=== PATIENT | female | born 1975 | race Caucasian/White ===

== ENCOUNTER → 2021-02-08 15:17 | Outpatient (CLI) | payer OTHER, SELFPAY ==
--- NOTE | ~2021-02-08 | MM_ITS ---
EXAMINATION: MM screening jennifer BI w isatu HISTORY: Screening TECHNIQUE: Craniocaudal and mediolateral oblique 3-D tomosynthesis images were obtained and synthetic 2-D images were generated. CAD analysis was submitted and interpreted. COMPARISON: No prior mammogram is available for comparison at this institution. BREAST PARENCHYMAL COMPOSITION: There are scattered areas of fibroglandular density. FINDINGS: There are small masses in the subareolar location of both breasts. There are no suspicious calcifications or architectural distortion. IMPRESSION: 1. Bilateral subareolar breast mass. 2. Comparison to previous outside mammograms recommended. BI-RADS Category 0: Incomplete: Needs additional imaging evaluation. Reviewed, dictated and finalized at location A. OR GREETING CARD
== END ==
PROVIDERS: Visit Provider Obstetrics & Gynecology
DX: Z12.31 Encounter for screening mammogram for malignant neoplasm of breast (principal); R92.8 Other abnormal and inconclusive findings on diagnostic imaging of breast
CPT/HCPCS: 77063; 77067

== ENCOUNTER → 2022-08-01 16:48 | Outpatient (CLI) | payer OTHER, SELFPAY ==
--- NOTE | ~2022-08-01 | MM_ITS ---
EXAMINATION: MM screening jennifer BI w isatu HISTORY: Screening mammogram TECHNIQUE: Craniocaudal and mediolateral oblique 3-D tomosynthesis images were obtained and synthetic 2-D images were generated. CAD analysis was submitted and interpreted. COMPARISON: 02/08/2021 bilateral screening mammogram BREAST PARENCHYMAL COMPOSITION: There are scattered areas of fibroglandular density. FINDINGS: There is no evidence of suspicious mass, calcification, or architectural distortion to sugg est malignancy in either breast. There has been no suspicious interval change. IMPRESSION: 1. No mammographic evidence of malignancy. 2. Recommend routine screening mammography in one year. BI-RADS Category 1: Negative Reviewed, dictated and finalized at location A.
== END ==
PROVIDERS: PCP Obstetrics & Gynecology; Visit Provider Obstetrics & Gynecology
DX: Z12.31 Encounter for screening mammogram for malignant neoplasm of breast (principal)
CPT/HCPCS: 77063; 77067

== ENCOUNTER 2023-09-18 14:18 | Outpatient (CLI) | payer OTHER, SELFPAY ==
--- NOTE | ~2023-09-18 | MM_ITS ---
EXAMINATION: MM screening jennifer BI w isatu HISTORY: Screening TECHNIQUE: Craniocaudal and mediolateral oblique 3-D tomosynthesis images were obtained and synthetic 2-D images were generated. CAD analysis was submitted and interpreted. COMPARISON: Comparison to multiple prior studies sequentially, with oldest reviewed study dated 12/03. BREAST PARENCHYMAL COMPOSITION: Not dense: There are scattered areas of fibroglandular density. FINDINGS: There is no evidence of suspicious mass, calcification, or architectural distortion to sugg est malignancy in either breast. There has been no suspicious interval change. IMPRESSION: 1. No mammographic evidence of malignancy. 2. Recommend routine screening mammography in one year. BI-RADS Category 1: Negative Reviewed, dictated and finalized at location B.
== END 2023-09-18 14:19 ==
LOC: MICIMG 14:19
PROVIDERS: PCP Obstetrics & Gynecology; Visit Provider Obstetrics & Gynecology
DX: Z12.31 Encounter for screening mammogram for malignant neoplasm of breast (principal)
CPT/HCPCS: 77063; 77067

== ENCOUNTER 2024-06-15 00:40 | Day surgery (SDC) | payer OTHER, SELFPAY ==
[2024-06-03 10:30] VITALS: BMI 38.7
--- OUTSIDE RECORDS SUMMARY | 2024-06-15 00:42 | XMS_ITS | Clinical Summary ---
Author Organization [facility] Address [address] [place] [address] Care Team Providers Care Grain Inspector Name Role Phone Eulalia Gamez NP Primary Care Provider [phone] Family History Medical History Relation Comments Breast Cancer Neg Hx Social History Tobacco Use Types Packs/Day Years Used Date Smoking Tobacco: Never Assessed Comments Unknown Sex and Gender Information Value Date Recorded Sex Assigned at Not on file Legal Sex Female 7:58 AM CDT Gender Identity Not on file Sexual Orientation Not on file Plan of Treatment Health Maintenance Due Date Last Done Comments Cervical Cancer Screening Pa p Smear (Age 30 to 64) Every 3 Years 1977 Colorectal Cancer Screening Colonoscopy (10 Years) 1977 Annual Physical 1980 Hepatitis C 11/17/1995 DTaP, Tdap and Td Vaccines ( 1 - Tdap) 1996 Hepatitis B Vaccines (1 of 3 - 19+ 3-dose series) 1996 Cervical Cancer Screening Pa p with HPV Testing (Age 30 to 64) Every 5 Years 11/17/2007 Cervical Cancer Screening wi th HPV 11/17/2007 Mammogram Screening 01/12/2022 01/13/2020, 12/30/2019 COVID-19 Vaccine (2023-2 5 season) 2023 Meningococcal B Vaccine Aged Out No l onger eligible based on patient's age to complete this topic Meningococcal Vaccine Aged Out No lauren galen eligible based on patient's age to complete this topic Pneumococcal Vaccine: Pediatrics (0 to 5 Years) and At-Risk Patients (6 to 49 Years) Aged Out No longer eligible b ased on patient's age to complete this topic RSV Immunizations Under 20 Months Aged Out No longer eligible b ased on patient's age to complete this topic Procedures Procedure Name Priority Date/Time Associated Diagnosis Comments MG DIAG ADD VIEW W LIN JACOB Routine 01/13/2020 2:22 PM TWISTING PRESS OPERATOR Abnormal mammogram from Last 3 Months or Most Recently Relevant to Health Maintenance Results * MG DIAG ADD VIEW W LIN JACOB (01/13/2020 2:22 PM TWISTING PRESS OPERATOR) Anatomical Region Laterality Modality Breast Bilateral Mammography, Rad iographic Imaging 01/13/2020 2:26 PM TWISTING PRESS OPERATOR Addenda Addendum by Camilo Yuen MD on 01/15/2020 1:52 PM TWISTING PRESS OPERATOR IMAGING STUDIES: MG DIAG ADD VIEW W LIN JACOB DATE: 01/13/2020 1:30 PM INDICATION: Additional imaging as required per screening examination 12/30/2019. COMPARISON: Mammogram 12/22/2019, bilateral breast ultrasound 01/13/2020. FINDINGS: Bilateral ML and focal compression CC and MLO views, digital with CAD. 2-D with 3-D tomosynthesis. Breast compostition: Category B - There are areas of scattered fibroglandular density. Persistent nodularity present right breast near 9:00 approximately 3 cm from the nipple and left breast upper outer quadrant approximately 6 cm from the nipple. These areas were evaluated by ultrasound. Refer to same day ultrasound report for additional information. No suspicious microcalcification, skin thickening or nipple retraction. Ultrasound imaging of both breasts was performed. Within the left breast, 2:00, 6 cm from the nipple, there is a 2.6 x 2.1 x 3.0 mm anechoic simple cyst. No additional follow-up required. Within the right breast, 10:00, 3 cm from the nipple, there is an anechoic, cystic, nonvascular lobulated 10 x 5 x 10 mm likely complex cyst. Recommend 6 month follow-up ultrasound and if necessary MAMMOGRAM. BI-RADS Category 3, probably benign findings. I discussed these findings with the patient at time of the ultrasound examination Interpreted By: Camilo Yuen, 01/15/2020 1:48 PM Narrative 01/13/2020 2:28 PM TWISTING PRESS OPERATOR IMAGING STUDIES: MG DIAG ADD VIEW W LIN JACOB DATE: 01/13/2020 1:30 PM INDICATION: Additional imaging as required per screening examination 12/30/2019. COMPARISON: Mammogram 12/22/2019, bilateral breast ultrasound 01/13/2020. FINDINGS: Bilateral ML and focal compression CC and MLO views, digital with CAD. 2-D with 3-D tomosynthesis. Breast compostition: Category B - There are areas of scattered fibroglandular density. Persistent nodularity present right breast near 9:00 approximately 3 cm from the nipple and left breast upper outer quadrant approximately 6 cm from the nipple. These areas were evaluated by ultrasound. Refer to same day ultrasound report for additional information. No suspicious microcalcification, skin thickening or nipple retraction. Ultrasound imaging of both breasts was performed. Within the left breast, 2:00, 6 cm from the nipple, there is a 2.6 x 2.1 x 3.0 mm anechoic simple cyst. No additional follow-up required. Within the right breast, 10:00, 3 cm from the nipple, there is an anechoic, cystic, nonvascular lobulated 10 x 5 x 10 mm likely complex cyst. Recommend 6 month follow-up ultrasound and if necessary ultrasound. BI-RADS Category 3, probably benign findings. I discussed these findings with the patient at time of the ultrasound examination Interpreted By: Camilo Yuen, 01/13/2020 2:26 PM Mayco Almaguer MD MAMMO Edited Res ult - Final from Last 3 Months or Most Recently Relevant [place] [address] Care Teams Grain Inspector Relationship Specialty Start Date End Date Eulalia Gamez NP [address] [address] PCP - General NURSE PRACTITIONER 12/30/19
--- OUTSIDE RECORDS SUMMARY | 2024-06-15 00:42 | XMS_ITS ---
Author Organization [facility] Address [address] [place] [id number] Care Team Providers Care Wide Area Network Administrator Name Role Phone Yolanda Wright Primary Care Provider [phone] Migration, Provider Unavailable Unavailable Allergies Allergen (clinical drug ingredient) Drug/Non Drug Allergy documented on EMR Reaction Allergy Type Onset Date Status Substance with penicillin structure and antibacterial mechanism of action (substance) Penicillins *Unknown Drug Allergy 09/12/2020 Active REASON FOR VISIT EMR-Keith Social History Social History Additional Details Category Social Info Options Details Migrated Social History Migrated Social History Tobacco history:Never smoker , Employment:Currently employed ,notes : process project engineer , Marital status: , Number of children:2 Encounters Encounter Location Date Provider Diagnosis [address] [address] 02/02/2024 Provider Migration Plan Of Treatment No Information Progress Notes * Richy MATTAalDOB: 8 (48 yo F)Acc No.[id number]:02/02/2024 Patient: Sona [place] :1975 A ge:48 Y S ex:Female Address:[address] [place] [address], [id number] Subjective: * Chief Complaints: * E MR-Keith * Social History: M igrated Social History: M igrated Social History: Tobacco history:Never smoker,Employment:Currently employed ,notes : process project engineer,Marital status:,Number of children:2. * Allergies: P enicillins: *Unknown - Allergy - Onset Date 09/12/2020 * * Date:
--- OUTSIDE RECORDS SUMMARY | 2024-06-15 00:43 | XMS_ITS ---
Author Organization [facility] [place] Address [address] [place] [id number] Care Team Providers Care Inventory Control Associate Name Role Phone Yolanda Wright Primary Care Provider [phone] Migration, Provider Unavailable Unavailable REASON FOR VISIT EMR-Keith Encounters Encounter Location Date Provider Diagnosis [facility] [address] [place] [address] 02/01/2024 Provider Migration Plan Of Treatment Medication Medication Name Sig Start Date Stop Date Notes Doxycycline Monohydrate 100 MG 1 Oral tw o times a day; Duration: 06/12/2021 06/21/2021 Naproxen 500 MG 1 Oral two times a d ay; Duration: 04/19/2023 06/17/2023 Progress Notes * URBANLIUEdilbertoOB: 8 (48 yo F)Acc No.[id number]:02/01/2024 Patient: Cristy JACOBSSona HAT[place] :1975 A ge:48 Y S ex:Female Address:[address] [place] [address], [address] * Refills Stop Doxycycline Monohydrate Capsule, 100 MG, Oral, 20, 1, two times a day, 10 Stop Naproxen Tablet, 500 MG, Oral, 60, 1, two times a day, 30 Subjective: * Chief Complaints: * E MR-Keith * * Date:
--- OUTSIDE RECORDS SUMMARY | 2024-06-15 00:43 | XMS_ITS | Patient Health Record ---
Author Organization [facility] Address [address] [facility] [place] [address] Care Team Providers Care Graduate Advisor Name Role Phone Yolanda Wright Primary Care Provider [phone] Rudolph Whitehead Unavailable [phone] Migration, Provider Unavailable Unavailable Reason For Referral Reason due for colon cancer screening, evaluation of ongoing abdominal pain and diarrhea Diagnosis 1 Left lower quadrant abdominal pain (R10.32) Diagnosis 2 Encounter for screen ing for malignant neoplasm of colon (Z12.11) Referral Organization [facility] Referring Provider First Name Rudolph Referring Provider Last Name Charley Referring Provider Speciality Physician Saddle Stitching Machine Operator Referred Provider Geovany Rose Referred Provider Specialty Gastroentero logy General Notes Lakshmi Myles 1 04/29/2023 02:57:16 PM WOOD ROOM HAND >Faxed referral to Dr. Rose [phone] Kristy 04/29/2024 04:30:22 PM WOOD ROOM HAND >has pt been scheduled or seen?, Lakshmi Myles 05/06/2024 02:31:59 PM WOOD ROOM HAND >LVM with office Referral Priority Routine Medications Medication SIG (Take, Route, Fr equency, Duration) Notes Start Date End Date Status Ondansetron 4 MG 1 tablet on the tongue and allow to dissolve Orally; Duration: 30 days every 4-6 hourse as needed 02/14/2024 Activ e Social History Social History Additional Details Category Social Info Options Details Migrated Social History Migrated Social History Employment:Currently employed ,notes : project buyer , Marital status: , Tobacco history:Never smoker , Number of children:2 Problems Problem Type SNOMED Code ICD Code Onset Dates Problem Status W/U Status Risk Notes Problem Obesity (034869010) Obesity, unspecified (E66.9) 8 Problem resolved confirmed Problem General examination of patient (018693748) Routine general medical examination at health care facility (V70.0) 8 Problem resolved confirmed Problem Obesity (976381506) Obesity, unspecified (278.00) 8 Problem resolved confirmed Problem Food allergy (792934473) Allergy to other foods (Z91.018) 4 Active confirmed Problem Adult health examination (691969278) Encounter for general adult medical examination without abnormal findings (Z00.00) 1 Active confirmed Problem Allergic rhinitis (02733184) Allergic rhinitis, unspecified (J30.9) 2 Active confirmed Problem Acute sinusitis (66774508) Acute sinusitis, unspecified (J01.90) 2 Active confirmed Problem Vitamin D deficiency (57944944) Vitamin D deficiency, unspecified (E55.9) 1 Active confirmed Problem Medial epicondylitis of right elbow (785725497970978) Medial epicondylitis, right elbow (M77.01) 4 Active confirmed Vital Signs Heart Rate 125 /min 02/14/2024 Temperature 98.6 degrees Fahrenheit 02/14/2024 Blood pressure diastolic 72 mm Hg 02/14/2024 Oximetry 98 % 02/14/2024 Height-cm 163.83 cm 02/14/2024 Weight-kg 107 kg 02/14/2024 Height 64.50 in 02/14/2024 Blood pressure systolic 128 mm Hg 02/14/2024 Weight 235.9 lbs 02/14/2024 BMI 39.86 kg/m2 02/14/2024 Encounters Encounter Location Date Provider Diagnosis [facility] [address] [place] [address] 02/14/2024 Rudolph Charley Left lower quadrant abdominal pain R10.32 ; Bloating R14.0 ; Frequent diarrhea R19.7 and Encounter for screening for malignant neoplasm of colon Z12.11 [facility] [address] [place] [address] 02/01/[address] [facility] [address] [place] [address] 02/02/2024 Provider Migration Assessments Encounter Date Diagnosis (ICD Code) Assessment Notes Treatment Notes Treatment Clinical Notes Section Notes 02/14/2024 Left lower quadrant abdominal pain (ICD-10 - R10.32) - Symptoms may be related to dietary triggers or potential gastrointestinal conditions such as celiac disease, lactose intolerance, or other food intolerances. Infectious causes or inflammatory conditions are also being considered.- Differential diagnosis includes celiac disease, lactose intolerance, irritable bowel syndrome (IBS), inflammatory bowel disease (IBD), cholecystitis, pancreatitis, and potential infectious gastroenteritis.- Order labs: CBC, CMP, lipids, ESR, TSH/T4, lipase- Recommend dietary elimination trial, starting with dairy products for at least one week, followed by gluten if no improvement.- Prescribe zofran for nausea, to be taken every 4-6 hours as needed for nausea, discussed risk and benefit of med.- Recommend daily use of famotidine or prilosec to reduce bloating and acid-related symptoms, possible gastritis.- Encourage a bland diet (e.g., bananas, rice, applesauce, toast) to rest the bowel and maintain hydration.- Schedule a referral for a screening colonoscopy.- Consider imaging (CT of the abdomen) if symptoms persist or worsen after initial steps.- Stool testing for white blood cells, red blood cells, blood presence, and bacterial cultures may be considered as indicated. 02/14/2024 Bloating (ICD-10 - R14.0) 02/14/2024 Frequent diarrhea (ICD-10 - R19.7) 02/14/2024 Encounter for screening for malignant neoplasm of colon (ICD-10 - Z12.11) Referral to Dr. Rose in [facility] for colon cancer screening and possible diagnostic scope. Plan Of Treatment No Information Insurance Providers Payer Name Payer Address Payer Phone Subscriber Number Group Number Insured Name Patient Relationship to Insured Coverage Start Date Coverage End Date [id number] MARLA QUE[place] [id number] Sona Jenkins Self - patient is the insured 2
[2024-06-15 09:40] VITALS: BP 141/99; PULSE 109; RESP 20; TEMP 35.8; O2SAT 100; BMI 38.8
--- NOTE | 2024-06-15 09:48 | P.PNAN_ITS ---
Anes - Initial Pre Proc Eval Procedure: Operation Date: 06/15/24 10:30 Proposed Procedures p Colonoscopy - Nathan Roberts MD Date/Time: 06/15/24 09:48 Surgeon: Nathan Roberts MD Pre Op Diagnosis: Left lower quad pain, diarrhea Patient Data Age: 48 Gender: F Height: 1.63 m Weight: 102.7 kg Last Vital Signs Temp 96.5 F L 06/15/24 09:40 Pulse 109 H 06/15/24 09:40 Resp 20 06/15/24 09:40 BP 141/99 H 06/15/24 09:40 Pulse Ox 100 06/15/24 09:40 O2 Del Method Room Air 06/15/24 09:40 Allergies Allergy/AdvReac Type Severity Reaction Status Date / Time Penicillins Allergy Severe Rash Verified 06/15/24 09:38 tomato Allergy Severe Swelling Verified 06/15/24 09:38 Home Medications ?Medication ?Instructions ?Recorded ?Confirmed ?Type cetirizine 10 mg tablet (24Hour 10 mg PO DAILY PRN allergies 06/03/24 06/15/24 History Allergy) omeprazole 40 mg capsule,delayed 40 mg PO DAILY 06/03/24 06/15/24 History release Patient hx anesthesia problems: none Family hx anesthesia problems: none Results Review: All pre-operative results and documents have been reviewed as part of the pre- operative evaluation. PMFSH Social History Social History Years smoked: 5 Smoking status: Former smoker Alcohol intake: current Drinks per week: 4 Substance use: never Substance use type: does not use Living arrangements: with family Spiritual care concerns: No Anes - Eval Final PreProcedure Day of Procedure 06/15/24 09:48 Patient weight: obese Heart: regular rate and rhythm Lungs: clear to auscultation Airway: Mallampati scale class II Neurological: alert and oriented Last oral intake: >/= 8 hours ASA classification: III Emergent: no Anesthetic plan: proceed Anesthesia type and monitoring: general GIVS and standard monitoring Results Review: All pre-operative results and documents have been reviewed as part of the pre- operative evaluation. Informed Consent: The patient's anesthetic plan and its attendant risks and benefits were discussed with the patient/family/POA. Questions were solicited and answers provided to the satisfaction of the patient/family/POA.
[2024-06-15] MEDS: LACTATED RINGERS 1,000 ML 150 ML IV CONT (09:53)
--- NOTE | 2024-06-15 10:19 | PM.HPGS ---
History of Present Illness History of Present Illness Consent: Risks, benefits, and alternatives have been discussed and questions answered. Patient agrees to proceed with procedure. Chief complaint: Left lower quad pain, diarrhea Narrative: Sona Jenkins is a 48 year old female here for first colonoscopy, for last few months noted intermittent pain in llq after eating seeds, vegetables and then will have loose stool Review of Systems Review of Systems: All systems reviewed & are unremarkable except as noted in HPI and below PMFSH Past Medical History Medical History (Updated 06/15/24 @ 10:19 by Nathan Roberts MD) Lower abdominal pain Social History Social History Years smoked: 5 Smoking status: Former smoker Alcohol intake: current Drinks per week: 4 Substance use: never Substance use type: does not use Living arrangements: with family Spiritual care concerns: No Meds Home Medications and Allergies Home Medications ?Medication ?Instructions ?Recorded ?Confirmed ?Type cetirizine 10 mg tablet (24Hour 10 mg PO DAILY PRN allergies 06/03/24 06/15/24 History Allergy) omeprazole 40 mg capsule,delayed 40 mg PO DAILY 06/03/24 06/15/24 History release Allergies Allergy/AdvReac Type Severity Reaction Status Date / Time Penicillins Allergy Severe Rash Verified 06/15/24 09:38 tomato Allergy Severe Swelling Verified 06/15/24 09:38 Vital Signs Vital Signs - 24 hr 06/15/24 09:40 Temperature 96.5 F L Pulse Rate 109 H Respiratory Rate 20 Blood Pressure 141/99 H Pulse Oximetry 100 Oxygen Delivery Room Air Exam Const: General: comfortable and no acute distress HENMT: Face/Nose/Sinus: Normal nares present Eyes: General: appearance normal, both eyes and all related structures Neck: Neck: no JVD Resp: Auscultation: clear to auscultation bilaterally Cardio: Rate: regular rate Rhythm: regular rhythm GI: Inspection: non-distended GI Palp: Yes Soft to palpation Skin: General skin exam: normal color Neuro: Speech: normal speech Extrem: General: normal to inspection Psych: Mental Status: mental status grossly normal Assessment and Plan Assessment and plan (1) Lower abdominal pain: Code(s): R10.30 - Lower abdominal pain, unspecified Status: Acute Assessment and Plan: colonoscopy consider random bx
[2024-06-15 10:31] VITALS: BP 125/79; PULSE 97; RESP 25; O2SAT 98
[2024-06-15 10:31] LABS: BEDSIDEPREGUCG Negative (Negative)
[2024-06-15 10:41] VITALS: BP 150/95; PULSE 87; RESP 32; O2SAT 99
[2024-06-15 10:51] VITALS: BP 140/103; PULSE 89; RESP 23; O2SAT 100
== END 2024-06-15 11:05 | disposition home or self-care (01) ==
PROVIDERS: Referring Provider Student in an Organized Health Care Education/Training Program; Visit Provider Internal Medicine Gastroenterology
PROC: 0DJD8ZZ Inspection of Lower Intestinal Tract, Via Natural or Artificial Opening Endoscopic (ICD-10-PCS; CPT 45378; principal; 2024-06-15 10:30)
DX: Z12.11 Encounter for screening for malignant neoplasm of colon (principal); K63.5 Polyp of colon; E66.9 Obesity, unspecified; Z68.38 Body mass index [BMI] 38.0-38.9, adult; Z87.891 Personal history of nicotine dependence
CPT/HCPCS: 45380; 45385; 88305; J2003; J2704; J7120

== ENCOUNTER 2025-02-02 15:07 | Outpatient (CLI) | payer OTHER, SELFPAY ==
--- NOTE | ~2025-02-02 | MM_ITS ---
EXAMINATION: MM screening jennifer BI w isatu HISTORY: Screening. TECHNIQUE: Craniocaudal and mediolateral oblique 3-D tomosynthesis images were obtained and synthetic 2-D images were generated. CAD analysis was submitted and interpreted. COMPARISON: 2023, 2022, and 2020 BREAST PARENCHYMAL COMPOSITION: Dense: The breasts are heterogeneously dense FINDINGS: No suspicious masses are seen. There are no suspicious calcifications. No unexplained architectural distortion is seen. There are no skin or nipple abnormalities identified. There is no adenopathy seen on the images submitted. IMPRESSION: No mammographic evidence to suggest malignancy is seen. The patient may return to screening mammography as per ACR guidelines. BI-RADS 1 - Negative. Reviewed, dictated and finalized at location B. IC HEALTH WORKER
== END 2025-02-02 15:08 | disposition home or self-care (01) ==
PROVIDERS: PCP Obstetrics & Gynecology; Visit Provider Obstetrics & Gynecology
DX: Z12.31 Encounter for screening mammogram for malignant neoplasm of breast (principal)
CPT/HCPCS: 77063; 77067